=== PATIENT | female | born 1990 | race American Indian/Alaskan Native ===

== ENCOUNTER 2020-07-13 14:11 | Emergency (ER) | payer SELFPAY ==
[2020-07-13 14:24] VITALS: BP 137/78
--- NOTE | 2020-07-13 17:19 | Emergency Department Report ---
- General Chief Complaint: Upper Respiratory Infection Stated Complaint: SOB Time Seen by Provider: 07/13/20 16:05 Source: patient Mode of arrival: Ambulatory Limitations: No Limitations - History of Present Illness Initial Comments: Patient is a 30-year-old female presents emergency room complaints of cough and chest congestion that began 2 days ago. She has associated nasal congestion and shortness of breath after frequent coughing. She denies any fever, vomiting, diarrhea, sore throat, ear pain, chest pain, abdominal pain, vaginal bleeding. She states that she is approximately 8-1/2 weeks . She states that she goes to [place] for her [employer] care. She has a past medical history of bronchitis. She states that she has been using an inhaler as needed when she feels short of breath. She denies any history of asthma. No allergies to medications. She states that she is a non-smoker. She denies any recent travel. She states that her daughter is sick at home with cold-like symptoms. - Related Data Allergies Allergy/AdvReac Type Severity Reaction Status Date / Time No Known Allergies Allergy Unverified 07/13/20 14:21 ED Review of Systems ROS: Stated complaint: SOB Other details as noted in HPI Comment: All other systems reviewed and negative ED Past Medical Hx - Past Medical History Previous Medical History?: No - Surgical History Additional Surgical History: Right arm - Social History Smoking Status: Never Smoker ED Physical Exam - General Limitations: No Limitations General appearance: alert, in no apparent distress - Head Head exam: Present: atraumatic, normocephalic - Eye Eye exam: Present: normal appearance - ENT ENT exam: Present: mucous membranes moist - Respiratory Respiratory exam: Present: normal lung sounds bilaterally. Absent: respiratory distress, wheezes, rales, rhonchi, stridor, chest wall tenderness, accessory mu scle use, decreased breath sounds, prolonged expiratory - Cardiovascular Cardiovascular Exam: Present: regular rate, normal rhythm, normal heart sounds. Absent: systolic murmur, diastolic murmur, rubs, gallop - Neurological Exam Neurological exam: Present: alert, oriented X3 - Psychiatric Psychiatric exam: Present: normal affect, normal mood - Skin Skin exam: Present: warm, dry, intact ED Course Vital Signs 07/13/20 14:21 Temperature 97.8 F Pulse Rate 90 Respiratory 24 Rate Blood Pressure 137/78 O2 Sat by Pulse 97 Oximetry ED Medical Decision Making - Medical Decision Making Patient is a 30-year-old female presents emergency room complaints of cough and chest congestion that began 2 days ago. She has associated nasal congestion and shortness of breath after frequent coughing. She denies any fever, vomiting, diarrhea, sore throat, ear pain, chest pain, abdominal pain, vaginal bleeding. She states that she is approximately 8-1/2 weeks . She states that she goes to [place] for her [employer] care. She has a past medical history of bronchitis. She states that she has been using an inhaler as needed when she feels short of breath. She denies any history of asthma. No allergies to medications. She states that she is a non-smoker. She denies any recent travel. She states that her daughter is sick at home with cold-like symptoms. Vitals are stable. Breath sounds are clear bilaterally, no wheezing, no rales, no rhonchi, no respiratory distress, no stridor, no accessory muscle use. Advised patient that we would order a chest x-ray and shield her abdomen due to the , discussed risk vs benefits. X-ray attempted to call patient 5 times with no answer. I attempted to call patient's phone number listed in her chart 3 times and it went straight to voicemail. It appears patient has eloped from the emergency department prior to completing her medical examination. Critical care attestation.: If time is entered above; I have spent that time in minutes in the direct care of this critically ill patient, excluding procedure time. ED Disposition Clinical Impression: Upper respiratory infection Qualifiers: URI type: unspecified URI Qualified Code(s): J06.9 - Acute upper respiratory infection, unspecified Disposition: 07 ELOPED Is pt being admited?: No Does the pt Need Aspirin: No Condition: Undetermined Referrals: PRIMARY CARE, [Primary Care Provider] - 3-5 Days
== END 2020-07-13 18:00 | disposition left against medical advice (07) ==
LOC: ED 14:11
DX: J06.9 Acute upper respiratory infection, unspecified (principal)
CPT/HCPCS: 99281